=== PATIENT | female | born 1940 | race Caucasian/White ===

== ENCOUNTER → 2023-11-25 13:44 | Outpatient (REF) | payer OTHER, SELFPAY | LOC: HWWDC 13:44 | PROVIDERS: ATTENDING PHYSICIAN Obstetrics & Gynecology Gynecology; FAMILY PHYSICIAN Nurse Practitioner | DX: Z12.31 Encounter for screening mammogram for malignant neoplasm of breast (principal) | CPT/HCPCS: 77063; 77067 ==

== ENCOUNTER 2024-06-14 09:13 | Emergency (ER) | payer OTHER, SELFPAY ==
[2024-06-14 09:17] VITALS: BP 183/68
--- NOTE | 2024-06-14 09:29 | ED.GENMED ---
History of Present Illness
General
Chief Complaint: Jaw Pain
Source: patient
Time Seen by Provider: 06/14/24 09:20
History of Present Illness
History of Present Illness:
83-year-old female presents to the emergency room via ambulance from her primary care doctor's office. Patient states she was sent to the emergency room because her EKG was abnormal. Patient made an appointment to see her doctor because she has
been experiencing pain in her posterior neck for the past several days. Patient states that approximately 6 days ago she developed a headache. Headache was moderate in severity. She went to bed and woke up with no headache but feeling tension in
her neck radiating down to her shoulders. This is continued since then. Discomfort has not gotten any worse but has not gotten any better. She denies associated chest pain, shortness of breath, nausea or diaphoresis. Patient states that she goes
up and down steps in her house multiple times a day without any chest pain or limitation. She does not get short of breath. She denies any known cardiac history. She does not take medication for hypertension.
Past History
Past History
ED Past Medical History: Fibromyalgia, GERD and Other (Diverticulitis Daniels's esophagus)
ED Past Surgical History: Gynecological and Orthopedic
Social History
Tobacco: Non-smoker
Personal:
Living: with family
Family History
Family History: Negative Early CAD
Phy Exam
Physical Exam
Physical Exam:
General: Awake, Alert, Oriented X3. No acute distress.
Vitals: unremarkable
Head: Atraumatic
Eyes: Pupils equal, EOMI
Throat: Airway intact, no exudates
Neck: Trachea midline
Lungs: Clear and equal b/l
Heart: Regular rate, no murmurs
Abd: Soft, Nontender, No pulsatile mass
Neuro: Nonfocal
Skin: Warm, dry, no rash
Extremities: pulses equal b/l, no edema
Course
Orders/Labs/Results
Orders:
Orders
06/14/24 09:16
EKG [Electrocardiogram (*1)] Urgent
Reason for Study: Chest Pain
06/14/24 09:17
EKG- Treatment ONCE
06/14/24 09:26
Complete Blood Count/With Diff Urgent
Comprehensive Metabolic Panel Urgent
Troponin I Urgent
06/14/24 09:28
CR Chest - 2 Views Urgent
Comment:
Reason For Exam: neck/chest pain
06/14/24 10:24
Ketorolac [Toradol] 15 mg IV NOW STA
Abnormal Lab Results
06/14/24
09:26
WBC 11.9 H 10^3/uL
(4.8-10.8)
Hct 36.8 L %
(37.0-47.0)
MPV 11.4 H fL
(7.4-10.4)
Absolute Neuts (auto) 9.7 H 10^3/uL
(1.4-6.5)
Absolute Lymphs (auto) 1.1 L 10^3/uL
(1.2-3.4)
Absolute Monos (auto) 1.1 H 10^3/uL
(0.1-0.6)
Neutrophils % 81.2 H %
(42.2-75.2)
Lymphocytes % 8.9 L %
(20.5-51.1)
Sodium 130 L mmol/L
(135-145)
Glucose 110 H mg/dl
(70-99)
Alkaline Phosphatase 133 H U/L
(38-126)
06/14/24 09:26
06/14/24 09:26
Vital Signs
Initial and Last Documented VS:
Initial Vital Signs
Pulse Resp Pulse Ox
97 16 96
06/14/24 09:15 06/14/24 09:15 06/14/24 09:15
Last Documented Vital Signs
Pulse Resp BP Pulse Ox
71 20 152/56 95
06/14/24 12:00 06/14/24 12:00 06/14/24 12:00 06/14/24 12:00
MDM/Problems Addressed
Differential Diagnosis Includes:
Musculoskeletal pain, angina, NSTEMI
MDM/Problems Addressed:
Patient's work appears unremarkable. Troponin is normal. Chest x-ray shows no acute abnormalities. Physical exam noted some tenderness palpation of the cervical spine. The overall presentation sounds quite consistent with musculoskeletal neck
pain. Given that the troponin is negative and she has had pain for 6 days patient stable for discharge and follow-up as an outpatient
*Radiology
Radiology exam reviewed: radiology read reviewed
*Pulse Oximetry
Patient hypoxic: no
*EKG
Interpreted by ED Provider?: Yes
Heart Rate: 93
Rate: normal
Rhythm: sinus
QRS Pattern: left bundle branch block
Ischemia: no ischemia
*Game Trapper Interpretation
Rate: normal
Interpretation: normal
Rhythm: sinus
*Critical Care Note
Total Time (30-74mins, 75-104mins- exclusive of procedures): Not Applicable
ED Attending Note
-
Portions of this chart may have been created with voice recognition software.� Occasional wrong word or��sound alike� substitutions may have occurred due to the inherent limitations of voice recognition software.
Discharge Plan
Departure
Patient Disposition: Home (Routine Discharge)
Date of Disposition: 06/14/24
Time of Disposition: 12:25
Patient with high blood pressure during this ER visit?: Yes
Condition: Good
Discharge Problem:
Neck strain
Instructions: Neck Pain ED, BLOOD PRESSURE
Prescriptions:
No Action
famotidine 40 MG tablet
40 mg PO PRN PRN (Reason: stomach)
acetaminophen [Tylenol Extra Strength] 500 MG tablet
500 mg PO Q4HPRN PRN (Reason: fibromyalgia)
esomeprazole magnesium [Nexium] 40 MG capsule,delayed release(DR/EC)
40 mg PO DAILY
Lactobacillus rhamnosus GG 1 EACH capsule
1 ea PO DAILYPRN PRN (Reason: when she thinks of it)
calcium carbonate-vitamin D3 [Calcium 500 + D] 1 EACH tablet
1 ea PO DAILY
metronidazole 500 MG tablet
500 mg PO TID Qty: 30 0RF
levofloxacin 500 MG tablet
500 mg PO DAILY 10 Days 0RF
Referrals:
Trupti Gordillo CRNP [Family Provider] -
Interventions
Interventions:
*Risk Screen - Suicide Last Done: 06/14/24 09:15
*General Assessment Last Done: 06/14/24 09:15
*Neglect/Abuse Screening Last Done: 06/14/24 09:15
*Nursing Disposition Last Done: 06/14/24 12:43
ED-EENT Assessment Last Done: 06/14/24 10:00
ED- Cardiac Assessment Last Done: 06/14/24 10:00
Discharge Date and Time
Discharge Date/Time: 06/14/24 12:43
Print Language: GREENLANDIC
[2024-06-14 09:41] LABS: % Basophils 0.4 % (0-2); % Eosinophils 0.3 % (0-6); % Immature Granulocytes 0.3 % (0-0.5); % Lymphocytes 8.9 % (20.5-51.1); % Monocytes 8.9 % (1.7-9.3); % Neutrophils 81.2 % (42.2-75.2); Absolute Basophils 0.1 10^3/uL (0-0.2); Absolute Lymphocytes 1.1 10^3/uL (1.2-3.4); Absolute Monocytes 1.1 10^3/uL (0.1-0.6); Absolute Neutrophils 9.7 10^3/uL (1.4-6.5); Hematocrit 36.8 % (37.0-47.0); Hemoglobin 12.5 g/dL (12.0-16.0); Mean Corpuscular Hgb 28.6 pg (27.0-31.0); Mean Corpuscular Volume 84.2 fL (81.0-99.0); Mean Platelet Volume 11.4 fL (7.4-10.4); Nucleated Red Blood Cells % 0 %; Platelet Count 311 10^3/uL (130-400); Red Blood Cell Count 4.37 10^6/uL (4.20-5.40); Red Cell Dist. Width 13.7 % (11.5-14.5); White Blood Cell Count 11.9 10^3/uL (4.8-10.8)
[2024-06-14 09:54] LABS: ALT (SGPT) 24 U/L (0-35); AST (SGOT) 33 U/L (14-36); Albumin 3.9 g/dl (3.5-5.0); Alkaline Phosphatase 133 U/L (38-126); Blood Urea Nitrogen 11 mg/dl (7-17); Calcium 9.3 mg/dl (8.4-10.2); Carbon Dioxide 26 mmol/L (22-30); Chloride 98 mmol/L (98-107); Glucose 110 mg/dl (70-99); Potassium 4.4 mmol/L (3.5-5.1); Sodium 130 mmol/L (135-145); Total Bilirubin 0.7 mg/dl (0.2-1.3); Total Protein 6.8 g/dl (6.3-8.2); eGFR > 60.00
[2024-06-14 10:00] VITALS: BP 154/63
[2024-06-14 10:05] LABS: Troponin I 0.024 ng/ml
[2024-06-14] MEDS: TORADOL 15 MG IV (10:59)
[2024-06-14 11:00] VITALS: BP 156/61
[2024-06-14 12:00] VITALS: BP 152/56
== END 2024-06-14 12:43 | disposition home or self-care (01) ==
LOC: EMR 09:13
PROVIDERS: EMERGENCY PHYSICIAN Emergency Medicine; FAMILY PHYSICIAN Nurse Practitioner
DX: S16.1XXA Strain of muscle, fascia and tendon at neck level, initial encounter (principal); X58.XXXA Exposure to other specified factors, initial encounter; R03.0 Elevated blood-pressure reading, without diagnosis of hypertension
CPT/HCPCS: 99285; 96374; 71046; 80053; 84484; 85025; 93005

== ENCOUNTER → 2024-06-20 11:48 | Outpatient (REF) | payer OTHER, SELFPAY | LOC: HWRAD 11:48 | PROVIDERS: ATTENDING PHYSICIAN Nurse Practitioner | DX: M54.2 Cervicalgia (principal) | CPT/HCPCS: 70450; 70490 ==

== ENCOUNTER → 2024-06-27 14:42 | Outpatient (REF) | payer OTHER, SELFPAY | LOC: HWRCS 14:42 | PROVIDERS: ATTENDING PHYSICIAN Nurse Practitioner | DX: D72.829 Elevated white blood cell count, unspecified (principal); I44.7 Left bundle-branch block, unspecified | CPT/HCPCS: 93306 ==

== ENCOUNTER 2024-06-28 08:52 | Day surgery (SDC) | payer OTHER, SELFPAY ==
--- NOTE | 2024-06-27 15:50 | PTCARENOTE ---
Abnormal EKG reviewed by Dr Pereira, no further action requested.
[2024-06-28] VITALS (16 sets, daily range): BP systolic 15–220; BP diastolic 51–88; BMI 25.7
[2024-06-28 09:53] LABS: Glucose - Point of Care 98 mg/dl (70-99)
[2024-06-28] MEDS: PERIDEX 0.12% ORAL RINSE 15 ML PO (09:53)
[2024-06-28] MEDS: NSS 500 IV (09:53)
[2024-06-28] MEDS: BACTROBAN NASAL 1 GRAM NASAL (09:57)
--- NOTE | 2024-06-28 10:38 | W.SUR.PREOP ---
Addendum entered and electronically signed by Santosh Arias MD 06/28/24 10:40:
I discussed with patient my role in temporal arteritis for temporal artery biopsy. Discussed procedure at length. Discussed technical aspects of the procedure as well as risk/benefits/alternatives. Discussed risks primarily
bleeding/infection/nerve injury. Discussed diagnosis of temporal arteritis made by pathologist based on analysis of temporal artery biopsy. Discussed that management is by primary care versus corporate secretary. She understands all and wishes to
proceed with bilateral temporal artery biopsies.
Original Note:
Pre-Operative Surgical Note
-
I have examined this patient prior to the performance of the scheduled procedure.
The patient's condition is unchanged from the time of the current History and
Physical and the patient is able to undergo the scheduled procedure.
--- NOTE | 2024-06-28 12:24 | OR.RPT ---
Operative Report
Operative Report
PROCEDURE DATE: 06/28/2024
Preoperative diagnosis: Temporal arteritis
Postoperative diagnosis: Same
Procedure: Bilateral temporal artery biopsies
Surgeon: Hugo
Gear Tester: HARLEEN Tate required for all aspects of procedure including assistance with traction/countertraction, assistance with closure.
Complications: None
Anesthesia: Local, sedation
Indications for procedure:
Concern for temporal arteritis. Referred for temporal artery biopsies. Risk/benefit/alternatives of procedure were discussed. Patient understood all wish to proceed.
Description of procedure:
Patient was identified brought to the operating room placed on the table in supine position. After the adequate administration of anesthesia and perioperative antibiotics she was prepped and draped in the standard surgical fashion. A standard
preoperative timeout was undertaken and everybody was in agreement the plan. A longitudinal incision was made in the right scalp just anterior and superior to the superiormost aspect of the pinna of the right ear (overlying the palpable pulsation
of the artery) after infiltration of the skin and subcutaneous tissue with 1% lidocaine. This was carried down through the subcutaneous layer and the fascia layer with electrocautery. The superficial temporal artery was identified. It was
mobilized using sharp dissection. It was then ligated proximally and distally as well as a branch ligated all with silk ties and a clip. I then transected the artery. This was then sent for specimen.
A similar incision was made in the left scalp just anterior and superior to the superiormost aspect of the pinna of the left ear (overlying the palpable pulsation of the artery) after infiltration of the skin and subcutaneous tissue with 1%
lidocaine. Similarly this was carried down through the subcutaneous tissue and fascial layer with the electrocautery. The superficial temporal artery was identified and was mobilized using sharp dissection. It was then ligated proximally and
distally as well as a branch ligated all with silk ties and a clip. I then transected the artery. This was then sent for specimen.
Of note, both temporal artery specimens/temporal arteries were noted to be thickened and slightly enlarged. Grossly they appear to be possibly inflamed.
Both incision sites were then irrigated. Hemostasis was achieved and confirmed. We then closed in layers using 3-0 Vicryl deep dermal layer followed by 4-0 Monocryl subcuticular running layer (this was completed bilaterally). Dermabond was then
applied bilaterally. Patient tolerated procedure well.
[2024-06-28] MEDS: DILAUDID 0.25 MG IV (12:34)
[2024-06-28] MEDS: TYLENOL 650 MG PO (12:56)
== END 2024-06-28 14:10 | disposition home or self-care (01) ==
LOC: CATH 08:52
PROVIDERS: ATTENDING PHYSICIAN Surgery Vascular Surgery; FAMILY PHYSICIAN Nurse Practitioner
DX: M31.6 Other giant cell arteritis (principal); K22.70 Barrett's esophagus without dysplasia; K21.00 Gastro-esophageal reflux disease with esophagitis, without bleeding; Z79.52 Long term (current) use of systemic steroids; Z87.891 Personal history of nicotine dependence
CPT/HCPCS: 37609; 88305; 82962; 86850; 86870; 86900; 86901; 86905; 88313; 88342

== ENCOUNTER → 2024-07-31 09:45 | Outpatient (REF) | payer OTHER, SELFPAY | LOC: PAVMRI 09:45 | PROVIDERS: ATTENDING PHYSICIAN Nurse Practitioner | DX: M31.6 Other giant cell arteritis (principal); R93.89 Abnormal findings on diagnostic imaging of other specified body structures | CPT/HCPCS: 70553; A9575 ==

== ENCOUNTER → 2024-11-29 13:44 | Outpatient (REF) | payer OTHER, SELFPAY | LOC: HWRAD 13:44 | PROVIDERS: ATTENDING PHYSICIAN Nurse Practitioner | DX: M85.89 Other specified disorders of bone density and structure, multiple sites (principal); Z79.52 Long term (current) use of systemic steroids; Z12.31 Encounter for screening mammogram for malignant neoplasm of breast | CPT/HCPCS: 77063; 77067; 77080 ==

== ENCOUNTER 2025-05-20 19:27 | Emergency (ER) | payer OTHER, SELFPAY ==
[2025-05-20 19:29] VITALS: BP 132/96
[2025-05-20 19:38] VITALS: BMI 26.8
--- NOTE | 2025-05-20 20:31 | ED.GENMED ---
History of Present Illness
General
Chief Complaint: Skin Surface Trauma
Source: patient
Time Seen by Provider: 05/20/25 20:00
History of Present Illness
History of Present Illness:
84-year-old female presents to the emergency room complaining of injury to her right lower extremity. Patient struck her sanchez on a ladder. Suffered a laceration there. No other injuries. Patient does not recall her last tetanus shot. She does
not take oral anticoagulants.
Past History
Past History
ED Past Medical History: Fibromyalgia, GERD and Other (Diverticulitis Daniels's esophagus)
ED Past Surgical History: Gynecological and Orthopedic
Social History
Tobacco: Non-smoker
Personal:
Living: with family
Family History
Family History: Negative Early CAD
Phy Exam
Physical Exam
Physical Exam:
General: Awake, Alert, Oriented X3. No acute distress.
Vitals: unremarkable
Head: Atraumatic
Eyes: Pupils equal, EOMI
Throat: Airway intact, no exudates
Neck: Trachea midline
Neuro: Nonfocal
Skin: Warm, dry, no rash
Extremities: pulses equal b/l, flap laceration noted right lower extremity anterior lower sanchez. Flap is superficial at the edges but does become thicker closer to the base.
Course
Orders/Labs/Results
Orders:
Orders
05/20/25 20:33
Tetanus/Diphth/Acelpertussis [Adacel] 0.5 ml IM .ONCE ONE
Vital Signs
Initial and Last Documented VS:
Initial Vital Signs
Temp Pulse Resp BP Pulse Ox
97.8 F 86 16 132/96 95
05/20/25 19:29 05/20/25 19:29 05/20/25 19:29 05/20/25 19:29 05/20/25 19:29
Last Documented Vital Signs
Temp Pulse Resp BP Pulse Ox
98.7 F 68 20 174/64 96
05/20/25 20:45 05/20/25 20:50 05/20/25 20:50 05/20/25 20:50 05/20/25 21:20
Procedures
Laceration Closure
Right Leg:
Status of Wound: clean
Description of Wound Edges: ragged and flap-poorly vascularized
Anesthesia: 1% Lidocaine
Revision/Debridement: debrided
Wound exploration: explored to base- no FB
Type of Closure: single layer closure and mattress sutures
Skin Closure Material: 4-0 nylon
Number of sutures: 3
Additional information:
1 horizontal mattress suture placed at the apex of the simple ruptured sutures placed to tack down the flap. Steri-Strips placed elsewhere to help approximate edges.
MDM/Problems Addressed
Differential Diagnosis Includes:
Laceration, contusion
MDM/Problems Addressed:
Patient presents with a flap laceration to her anterior right sanchez. Wound tacked down with a couple sutures at Steri-Strips used to approximate the remainder of the flap. Recommend wound care follow-up.
*Pulse Oximetry
SaO2: 95
Oxygen Mode of Delivery: Room air
Patient hypoxic: no
*Critical Care Note
Total Time (30-74mins, 75-104mins- exclusive of procedures): Not Applicable
ED Attending Note
-
Portions of this chart may have been created with voice recognition software.� Occasional wrong word or��sound alike� substitutions may have occurred due to the inherent limitations of voice recognition software.
Discharge Plan
Departure
Patient Disposition: Home (Routine Discharge)
Date of Disposition: 05/20/25
Time of Disposition: 20:36
Patient with high blood pressure during this ER visit?: No
Condition: Good
Discharge Problem:
Laceration of right lower extremity
Instructions: Wound Care (DC)
Prescriptions:
No Action
acetaminophen [Tylenol Extra Strength] 500 MG tablet
500 mg PO Q4HPRN PRN (Reason: fibromyalgia)
calcium carbonate-vitamin D3 [Calcium 500 + D] 1 EACH tablet
1 ea PO BID
rabeprazole 20 mg Tablet,Delayed Release (Dr/Ec)
20 mg PO DAILY
prednisone 20 mg Tablet
60 mg PO DAILY
clobetasol 0.05 % Cream
1 applic TOPICAL PRN PRN (Reason: as directed)
famotidine [Pepcid] 20 mg Tablet
20 mg PO HS
cholestyramine (with sugar) 4 gram Powder In Packet
4 g PO DAILY
PreserVision AREDS
1 cap PO BID
acetaminophen [Tylenol] 325 mg Tablet
650 mg PO DAILY
psyllium Packet
1 packet PO DAILY PRN (Reason: constipation)
acetaminophen [Tylenol Extra Strength] 500 mg Tablet
500 mg PO DAILY
cholecalciferol (vitamin D3) [Vitamin D3] 25 mcg (1,000 unit) Tablet
25 mcg PO DAILY
Referrals:
[facility], [Other]
UNKNOWN - PT DOES,NOT KNOW [Family Provider]
[facility] [[facility]]
Activity Restrictions/Additional Instructions:
stitches should be removed in 7 to 10 days.
Interventions
Interventions:
*Risk Screen - Suicide Last Done: 05/20/25 19:30
*General Assessment Last Done: 05/20/25 19:40
*Neglect/Abuse Screening Last Done: 05/20/25 19:30
*ED- Fall Risk Assessment Last Done: 05/20/25 19:40
*ED COVID-19 Vaccine History Last Done: 05/20/25 19:40
*Nursing Disposition Last Done: 05/20/25 21:20
ED-Skin Assessment Last Done: 05/20/25 19:40
Discharge Date and Time
Discharge Date/Time: 05/20/25 21:00
Print Language: SIN[place]
[2025-05-20] MEDS: ADACEL 0.5 ML IM (20:42)
[2025-05-20 20:50] VITALS: BP 174/64
== END 2025-05-20 21:00 | disposition home or self-care (01) ==
LOC: EMR 19:27
PROVIDERS: EMERGENCY PHYSICIAN Emergency Medicine
DX: S81.811A Laceration without foreign body, right lower leg, initial encounter (principal); X58.XXXA Exposure to other specified factors, initial encounter; M79.7 Fibromyalgia; K21.9 Gastro-esophageal reflux disease without esophagitis; Z87.19 Personal history of other diseases of the digestive system
CPT/HCPCS: 99282; 12001; 90471; 90715

== ENCOUNTER → 2025-07-23 14:32 | Outpatient (REF) | payer OTHER, SELFPAY | LOC: EMG 14:32 | PROVIDERS: ATTENDING PHYSICIAN Orthopaedic Surgery; FAMILY PHYSICIAN Nurse Practitioner | DX: R20.0 Anesthesia of skin (principal) | CPT/HCPCS: 95886; 95911 ==

== ENCOUNTER 2025-08-21 06:25 | Day surgery (SDC) | payer OTHER, SELFPAY | END 2025-08-21 12:19 | disposition home or self-care (01) | LOC: GI 06:25 | PROVIDERS: ATTENDING PHYSICIAN Internal Medicine Gastroenterology | DX: Z12.11 Encounter for screening for malignant neoplasm of colon (principal); D12.0 Benign neoplasm of cecum; K64.8 Other hemorrhoids; K44.9 Diaphragmatic hernia without obstruction or gangrene; K22.70 Barrett's esophagus without dysplasia; Z80.0 Family history of malignant neoplasm of digestive organs; Z98.0 Intestinal bypass and anastomosis status | CPT/HCPCS: 45380; 43239; 88305 ==